=== PATIENT | female | born 1955 | race Caucasian/White ===

== ENCOUNTER 2018-01-01 07:01 | Emergency (ER) | payer OTHER ==
[2018-01-01 07:10] VITALS: PULSE 73; TEMP 98; BMI 22.7
--- NOTE | 2018-01-01 07:54 | PDOC ---
History of Present Illness - General Chief Complaint: Injury Stated Complaint: SLIPPED ON ICE HITTING HEAD ON WOODEN STEP Time Seen by Provider: 01/01/18 07:09 - History of Present Illness Initial Comments: 01/01/18 08:07 HEENT: Head injury History of present illness: Immediately PT, patient slipped on ice, fell backwards, striking her occiput. Small amount of bleeding. No loss of consciousness. No drowsiness or confusion thereafter. Ambulatory to ER for evaluation Review of systems: Mild headache, no loss of consciousness, no drowsiness, no confusion. No visual or focal neurologic symptoms, no unsteadiness of gait. No chest pain, shortness of breath, abdominal pain, nausea, vomiting, diarrhea, urinary tract symptoms, vaginal bleeding or discharge. No photophobia Past medical history: SVT, last episode 6 months ago, no recent flareups, scheduled for ablation in the near future. Otherwise healthy Social history: No tobacco alcohol or drugs. Fully ambulatory without disability. Employed, works in [employer] Family history: Reviewed and noncontributory including early coronary artery disease, metabolic disease including diabetes, neurologic disease, cancer Physical exam: Alert oriented 3 well-developed well-nourished no acute distress cheerful and cooperative Afebrile, vital signs normal except for transiently elevated blood pressure, which came down with rest and relaxation Examination of the head shows a superficial abrasion of the mid occiput, no punctures or deep lacerations, trace amount of serosanguineous fluid is present on the dressing. There is no swelling, contusion, hematoma, or depression. There is minimal tenderness. PERRLA 4 mm, fundi benign with sharp disc margins and good central venous pulsations. EOMs full without diplopia. Visual esteban intact to confrontation ENT clear. Neck without tenderness or deformity, full range of motion without pain Chest clear with full breath sounds throughout bilaterally, no wheezes rales or rhonchi, no chest wall rib cage tenderness or deformity Abdomen soft nontender without mass or organomegaly. No CVAT Spine and pelvis without tenderness or deformity Neurological intact. Cranial nerves intact. Strength full and symmetric. No focal sensory or motor deficits. Cerebellar intact. Gait stable and unimpaired Extremities: No visible or palpable trauma to the extremities. Full range of motion of the hips and shoulders and all other joints without limitation Impression: Minor head injury, no sign of intracranial hemorrhage or concussion , superficial abrasion Plan: The abrasion was cleaned and dressed with bacitracin. Head injury instructions were discussed with the patient. Tetanus immunization was updated. Patient was discharged with her , who will observe the patient. She will return to the ER if there are any further signs. Otherwise Tylenol and avoid excessive visual stimulation were recommended. Fully ambulatory and in no pain or other distress upon discharge Past History - Past Medical History Allergies/Adverse Reactions: Allergies Allergy/AdvReac Type Severity Reaction Status Date / Time No Known Allergies Allergy Verified 01/01/18 07:03 Home Medications: Ambulatory Orders Estradiol [Estrace] 42.5 gm VG DAILY 01/01/18 COPD: No Other medical history: DENIES - Suicide/Smoking/Psychosocial Hx Smoking History: Never smoked Have you smoked in the past 12 months: No Information on smoking cessation initiated: No Hx Alcohol Use: No Drug/Substance Use Hx: No Substance Use Type: None *Physical Exam - Vital Signs Last Vital Signs Temp Pulse Resp BP Pulse Ox 98 F 73 16 167/85 98 01/01/18 07:06 01/01/18 07:06 01/01/18 07:06 01/01/18 07:06 01/01/18 07:06 *DC/Admit/Observation/Transfer Diagnosis at time of Disposition: Head injury Qualifiers: Encounter type: initial encounter Qualified Code(s): S09.90XA - Unspecified injury of head, initial encounter - Discharge Dispostion Disposition: HOME Condition at time of disposition: Improved Admit: No - Referrals - Patient Instructions Printed Discharge Instructions: DI for Closed Head Injury Additional Instructions: Wound care, bacitracin, recheck if sign of infection Observation for head injury. Return to Hospital if further signs develop. - Post Discharge Activity
[2018-01-01] MEDS ORDERED: DIPHTH,PERTUSS(ACELL),TET 0.5 ML DISP.SYRIN IM ONE (07:57)
[2018-01-01 08:03] VITALS: BP 138/73
== END 2018-01-01 08:04 | disposition home or self-care (01) ==
LOC: FER 07:01
PROC: 3E0234Z Introduction of Serum, Toxoid and Vaccine into Muscle, Percutaneous Approach (ICD-10-PCS; principal; 2018-01-01)
DX: S09.90XA Unspecified injury of head, initial encounter (principal); W00.0XXA Fall on same level due to ice and snow, initial encounter; Y93.89 Activity, other specified; Y92.9 Unspecified place or not applicable
CPT/HCPCS: 90715; 99281-25